=== PATIENT | male | born 1960 | race Caucasian/White ===

== ENCOUNTER 2017-05-22 17:21 | Emergency (ER) | payer OTHER ==
[~2017-05-22] VITALS: Ht 188 cm; Wt 71.4 kg
[2017-05-22 17:25] VITALS: TEMP 36.9; Ht 188 cm; Wt 71.4 kg
[2017-05-22] MEDS ORDERED: SODIUM CHLORIDE 0.9% 1000ML 1,000 ML IV STA (17:32)
[2017-05-22] MEDS ORDERED: KETOROLAC TROMETHAMINE 30 MG/ML VIAL IV STA (17:32)
[2017-05-22] MEDS ORDERED: PROMETHAZINE HCL INJ 6.25 MG in SODIUM CHLORIDE 0.9% 50ML 50 ML IV STA (17:32)
[2017-05-22] MEDS ORDERED: ONDANSETRON INJ 2 MG/ML 2 ML VIAL IV STA (17:32)
--- NOTE | 2017-05-22 17:48 | EMERGENCY ROOM VISIT NOTE ---
History Report prepared by Kathia: Anna Barnett Under the Supervision of: Dr. Quirino Solorzano M.D. First contact with patient: 17:28 Chief Complaint: BACK PAIN Stated Complaint: BACK AND LEFT SIDE PAIN History of Present Illness The patient is a 56 year old male who presents to the Emergency Room with complaints of left abdominal and back pain starting suddenly two days ago. The patient rates his pain as a 9/10. The patient notes that he has also had a fever , cough and has been nauseous. He notes 4 episodes of vomiting. The patient denies diabetes or any history of kidney stones. The patient denies having a bowel movement in the past day. He also denies any possibility of injury. He has not had any urinary complaints and has never experienced this type of pain before. Source of History: patient Onset: two days ago Position: abdomen (left side), back Quality: other (9/10 pain) Associated Symptoms: + fevers, + cough, + nausea, + vomiting, No urinary symptoms Note: Pt. denies having a bowel movement today. Review of Systems See HPI for pertinent positives & negatives. A total of 10 systems reviewed and were otherwise negative. Family History no pertinent family history stated. Social History Smoking Status: Never Smoker Marital Status: single Current/Historical Medications Scheduled Ondasetron Odt (Zofran Odt), 4 MG SL Q6H Tamsulosin Hcl (Flomax), 0.4 MG PO DAILY Scheduled PRN Oxycodone Ir (Roxicodone Ir), 1-2 TAB PO Q4H PRN for Pain Allergies Coded Allergies: No Known Allergies (Unverified , 05/22/17) Physical Exam Vital Signs Date Time Temp Pulse Resp B/P (MAP) Pulse Ox O2 Delivery O2 Flow Rate FiO2 05/22/17 19:24 68 20 150/85 97 05/22/17 18:57 67 20 146/87 98 Room Air 05/22/17 17:25 36.9 103 17 138/101 97 Room Air Physical Exam GENERAL: Patient is in no acute distress. HEENT: No acute trauma, normocephalic atraumatic, mucous membranes moist, no nasal congestion, no scleral icterus. NECK: No stridor, no adenopathy, no meningismus, trachea is midline. LUNGS: Clear to auscultation bilaterally, no wheeze, no rhonchi, breath sounds equal. HEART: Tachycardic with regular rhythm, no murmurs ABDOMEN: Soft, moderately tender along entire left side, bowel sounds positive, no hernias, no peritonitis. EXTREMITIES: No cyanosis or edema, full range of motion of all the joints without pain or difficulty, no signs for acute trauma. NEUROLOGIC: Oriented x 3, no acute motor or sensory deficits, no focal weakness. SKIN: No rash, no jaundice, no diaphoresis. Back: Mild left flank discomfort with percussion. Medical Decision & Procedures ER Provider Diagnostic Interpretation: Radiology results as stated below per my review and radiologist interpretation: SINGLE VIEW CHEST FINDINGS: 2 AP, portable, upright chest radiographs are obtained. No prior studies are available for comparison at the time of dictation. The examination is degraded by portable technique and patient rotation. The cardiomediastinal silhouette is unremarkable. The lungs and pleural spaces are clear. No pneumothorax is seen. The bony thorax is grossly intact. IMPRESSION: No active disease in the chest. Electronically signed by: Quirino Roth M.D. ABD/PELVIS WITHOUT FOR STONE FINDINGS: Air Crew Officer topogram: Unremarkable. Lung bases: Minimal dependent changes likely atelectasis. Normal heart size. Mitral annular calcification suggested. A pericardial or pleural effusion. Liver: Normal morphology. Normal density. Biliary: No gross biliary ductal dilatation allowing for noncontrast technique. Normal gallbladder. Pancreas: Normal. Spleen: Normal. Adrenal glands: Normal. Kidneys and ureters: Mild left hydronephrosis with mild left perinephric infiltration and trace fluid in the left anterior perirenal space. Nonobstructing 3 mm calculus at the left lower pole noted. Dilatation of the left ureter with periureteral fat stranding. An obstructing 6 mm calculus is impacted at the left ureterovesical junction (series 3 image 43). Right kidney and ureter normal without evidence of calculus. Bladder: Incompletely evaluated secondary to underdistention. No evidence of bladder calculus. Pelvic organs: Prostate and seminal vesicles normal. Bowel: Diverticulosis of the descending and sigmoid colon. Normal appendix. No bowel obstruction. Peritoneal cavity: No free fluid or intraperitoneal gas. Vasculature: Atherosclerosis of the normal caliber abdominal aorta. Lymph nodes: No enlarged lymph nodes in the abdomen or pelvis. Abdominal wall: Small fat-containing umbilical hernia. Musculoskeletal: Degenerative changes of the symphysis pubis. IMPRESSION: 1. Obstructing 6 mm calculus impacted at the left ureterovesical junction with resultant mild left hydroureteronephrosis. Additional nonobstructing 3 mm left lower pole calculus. 2. Diverticulosis. Electronically signed by: Chandra Jay M.D. Laboratory Results 05/22/17 18:00 Red Blood Count 4.94, Mean Corpuscular Volume 89.1, Mean Corpuscular Hemoglobin 32.4, Mean Corpuscular Hemoglobin Concent 36.4, Mean Platelet Volume 9.8, Neutrophils (%) (Auto) 79.3, Lymphocytes (%) (Auto) 6.8, Monocytes (%) (Auto) 13.3, Eosinophils (%) (Auto) 0.2, Basophils (%) (Auto) 0.1, Neutrophils # (Auto ) 9.23, Lymphocytes # (Auto) 0.79, Monocytes # (Auto) 1.55, Eosinophils # (Auto ) 0.02, Basophils # (Auto) 0.01 05/22/17 18:00 Test 05/22/17 18:00 05/22/17 18:15 White Blood Count 11.64 K/uL (4.8-10.8) Red Blood Count 4.94 M/uL (4.7-6.1) Hemoglobin 16.0 g/dL (14.0-18.0) Hematocrit 44.0 % (42-52) Mean Corpuscular Volume 89.1 fL (80-100) Mean Corpuscular Hemoglobin 32.4 pg (25-34) Mean Corpuscular Hemoglobin Concent 36.4 g/dl (32-36) Platelet Count 232 K/uL (130-400) Mean Platelet Volume 9.8 fL (7.4-10.4) Neutrophils (%) (Auto) 79.3 % Lymphocytes (%) (Auto) 6.8 % Monocytes (%) (Auto) 13.3 % Eosinophils (%) (Auto) 0.2 % Basophils (%) (Auto) 0.1 % Neutrophils # (Auto) 9.23 K/uL (1.4-6.5) Lymphocytes # (Auto) 0.79 K/uL (1.2-3.4) Monocytes # (Auto) 1.55 K/uL (0.11-0.59) Eosinophils # (Auto) 0.02 K/uL (0-0.5) Basophils # (Auto) 0.01 K/uL (0-0.2) RDW Standard Deviation 40.3 fL (36.4-46.3) RDW Coefficient of Variation 12.5 % (11.5-14.5) Immature Granulocyte % (Auto) 0.3 % Immature Granulocyte # (Auto) 0.04 K/uL (0.00-0.02) Anion Gap 8.0 mmol/L (3-11) Est Creatinine Clear Calc Drug Dose 58.8 ml/min Estimated GFR () 64.2 Estimated GFR (Non- 55.4 BUN/Creatinine Ratio 8.0 (10-20) Calcium Level 9.5 mg/dl (8.5-10.1) Total Bilirubin 0.9 mg/dl (0.2-1) Aspartate Amino Transf (AST/SGOT) 17 U/L (15-37) Alanine Aminotransferase (ALT/SGPT) 23 U/L (12-78) Alkaline Phosphatase 54 U/L (45-117) Total Protein 7.7 gm/dl (6.4-8.2) Albumin 3.6 gm/dl (3.4-5.0) Globulin 4.1 gm/dl (2.5-4.0) Albumin/Globulin Ratio 0.9 (0.9-2) Lipase 129 U/L (73-393) Urine Color YELLOW Urine Appearance CLEAR (CLEAR) Urine pH 6.5 (4.5-7.5) Urine Specific [place] 1.019 (1.000-1.030) Urine Protein 1+ (NEG) Urine Glucose (UA) NEG (NEG) Urine Ketones NEG (NEG) Urine Occult Blood 2+ (NEG) Urine Nitrite NEG (NEG) Urine Bilirubin NEG (NEG) Urine Urobilinogen NEG (NEG) Urine Leukocyte Esterase TRACE (NEG) Urine WBC (Auto) 1-5 /hpf (0-5) Urine RBC (Auto) 10-30 /hpf (0-4) Urine Hyaline Casts (Auto) 1-5 /lpf (0-5) Urine Epithelial Cells (Auto) 5-10 /lpf (0-5) Urine Bacteria (Auto) NEG (NEG) Laboratory results reviewed by me. Medications Administered Medications (Trade) Dose Ordered Sig/Galilea Route Start Time Stop Time Status Last Admin Dose Admin Ondansetron HCl (Zofran Inj) 4 mg NOW STAT IV 05/22/17 17:32 05/22/17 17:34 DC 05/22/17 18:11 4 MG Sodium Chloride 1,000 ml @ 999 mls/hr Q1H1M STAT IV 05/22/17 17:32 05/22/17 18:32 DC 05/22/17 18:10 999 MLS/HR Morphine Sulfate (MoRPHine SULFATE INJ) 4 mg Q30M PRN IV 05/22/17 17:45 05/22/17 19:56 DC 05/22/17 19:22 4 MG Ketorolac Tromethamine (Toradol Inj) 30 mg NOW STAT IV 05/22/17 17:32 05/22/17 17:34 DC 05/22/17 18:11 30 MG Promethazine HCl 6.25 mg/Sodium Chloride 50.25 ml @ 204 mls/hr NOW STAT IV 05/22/17 17:32 05/22/17 17:46 DC 05/22/17 18:12 204 MLS/HR Tamsulosin HCl (Flomax Cap) 0.4 mg NOW ONCE PO 05/22/17 19:15 05/22/17 19:16 DC 05/22/17 19:22 0.4 MG ECG Indication: abdominal pain (and back pain) Rate (beats per minute): 73 Rhythm: normal sinus Findings: no acute ischemic change, no ectopy ED Course 1728: The patient was evaluated in room B5. A complete history and physical exam was performed. 1732: Promethazine HCl 6.25 mg/Sodium Chloride 50.25 ml @204 mls/hr, Toradol IInj 30 mg IV, Sodium Chloride 1000 ml @ 999 mls/hr IV, Zofran Inj 4 mg IV. 1745: Morphine Sulfate 4 mg IV 1910: I updated the patient with his radiology results. 1914: Flomax Cap 0.4 mg PO. 0: Reevaluated the patient. Discussed results and discharge instructions: He verbalized understanding and agreement. The patient is ready for discharge. Medical Decision Differential diagnosis includes but is not limited to renal colliculi, UTI, splenic injury, bowel obstruction, hernia, diverticulitis, pancreatitis, musculoskeletal pain, pneumonia. There is a mild leukocytosis which could be consistent with infection or just his pain. No concerning anemia. No significant electrolyte abnormality or kidney failure. There is no hepatitis or pancreatitis. Urinalysis shows some hematuria, no infection. EKG shows a normal sinus rhythm, no acute ischemia. Chest film does not show pneumonia or free air, there was no mediastinal widening. Abdominal and pelvis CT shows a left-sided ureteral stone with hydronephrosis. The patient received IV saline, IV Toradol and IV morphine, he was given IV saline and then eventually oral Flomax. The patient is feeling improved. I think he can be discharged with outpatient follow-up. He was discharged with Motrin, oxycodone, Zofran. He was given a prescription for Flomax. He will strain all his urine. If he has uncontrolled pain, fever or vomiting, he will need to return to the ER. He will follow with his doctor's office for a potential urology referral. [place] Drug Monitoring Program Search Results: no issues identified Medication Reconcilliation Current Medication List: was personally reviewed by me Blood Pressure Screening Patient's blood pressure: Elevated blood pressure Blood pressure disposition: Elevated BP felt to be situational Impression Primary Impression: Renal colic Additional Impression: Hematuria Scribe Attestation The scribe's documentation has been prepared under my direction and personally reviewed by me in its entirety. I confirm that the note above accurately reflects all work, treatment, procedures, and medical decision making performed by me. Departure Information Dispostion Home / Self-Care Prescriptions Oxycodone Ir (Roxicodone Ir) 5 Mg Tab 1-2 TAB PO Q4H Y for Pain, #12 TAB Prov: Quirino Solorzano M.D. 05/22/17 Tamsulosin Hcl (FLOMAX) 0.4 Mg Cap 0.4 MG PO DAILY, #10 CAP Prov: Quirino Solorzano M.D. 05/22/17 Ondasetron Odt (ZOFRAN ODT) 4 Mg Tab 4 MG SL Q6H for Nausea, #12 TAB Prov: Quirino Solorzano M.D. 05/22/17 Referrals Jesús Holm M.D. (PCP) Forms HOME CARE DOCUMENTATION FORM, IMPORTANT VISIT INFORMATION Patient Instructions My [facility] Additional Instructions flomax daily to help the stone pass strain all urine for the stone talk with your doctor about a urology referral motrin 600 m 3x per day for pain as needed oxy ir 1-2 tab every 4 hours for severe pain zofran 1 tab every 6 hours for nausea return for fever, vomiting or uncontrolled pain Problem Qualifiers
--- NOTE | 2017-05-22 17:54 | DIAGNOSTIC IMAGING REPORT ---
SINGLE VIEW CHEST CLINICAL HISTORY: Generalized abdominal pain. FINDINGS: 2 AP, portable, upright chest radiographs are obtained. No prior studies are available for comparison at the time of dictation. The examination is degraded by portable technique and patient rotation. The cardiomediastinal silhouette is unremarkable. The lungs and pleural spaces are clear. No pneumothorax is seen. The bony thorax is grossly intact. IMPRESSION: No active disease in the chest. Electronically signed by: Quirino Roth M.D. 05/22/2017 5:53 PM Dictated Date/Time: 05/22/2017 5:52 PM
[2017-05-22 18:11] LABS: BASO % 0.1 %; BASO ABS # 0.01 K/uL (0-0.2); COMPLETE YES; EOS % 0.2 %; IG% 0.3 %; LYMPH % 6.8 %; LYMPH ABS # 0.79 K/uL (1.2-3.4); MEAN CELL VOLUME 89.1 fL (80-100); MEAN CORPUSCULAR HEMOGLOBIN 32.4 pg (25-34); MEAN CORPUSCULAR HGB CONC 36.4 g/dl (32-36); MEAN PLATELET VOLUME 9.8 fL (7.4-10.4); MONO % 13.3 %; NEUT % 79.3 %; PLATELET COUNT 232 K/uL (130-400); RED BLOOD COUNT 4.94 M/uL (4.7-6.1); WHITE BLOOD COUNT 11.64 K/uL (4.8-10.8)
[2017-05-22] MEDS: MoRPHine SULFATE 4 MG/ML 1 ML CARP\\VIAL IV PRN ×2 (18:11→19:22)
[2017-05-22 18:32] LABS: CALCIUM 9.5 mg/dl (8.5-10.1); CREATININE 1.4 mg/dl (0.60-1.40); POTASSIUM 3.3 mmol/L (3.5-5.1)
[2017-05-22 18:34] LABS: ALB/GLOB RATIO 0.9 (0.9-2)
[2017-05-22 18:40] LABS: URINE APPEARANCE CLEAR (CLEAR); URINE BILIRUBIN NEG (NEG); URINE COLOR YELLOW; URINE NITRITE NEG (NEG); URINE PH 6.5 (4.5-7.5); URINE SPECIFIC GRAVITY 1.019 (1.000-1.030); UROBILINOGEN NEG (NEG); ZZUR CULT IF INDIC CLEAN CATCH NO
[2017-05-22 18:42] LABS: MANUAL MICROSCOPIC REQUIRED? NO; REVIEW REQ? NO
--- NOTE | 2017-05-22 18:42 | DIAGNOSTIC IMAGING REPORT ---
ABD/PELVIS WITHOUT FOR STONE CLINICAL HISTORY: 56 years-old Male presenting with EVALUATE FLANK PAIN/HEMATURIA. TECHNIQUE: Multidetector CT of the abdomen and pelvis was performed without the use of intravenous contrast. IV contrast: None. A dose lowering technique was used consistent with the principles of ALARA (as low as reasonably achievable). COMPARISON: None. CT DOSE (mGy.cm): The estimated cumulative dose is 802.15 mGy.cm. FINDINGS: Bark Skinner topogram: Unremarkable. Lung bases: Minimal dependent changes likely atelectasis. Normal heart size. Mitral annular calcification suggested. A pericardial or pleural effusion. Liver: Normal morphology. Normal density. Biliary: No gross biliary ductal dilatation allowing for noncontrast technique. Normal gallbladder. Pancreas: Normal. Spleen: Normal. Adrenal glands: Normal. Kidneys and ureters: Mild left hydronephrosis with mild left perinephric infiltration and trace fluid in the left anterior perirenal space. Nonobstructing 3 mm calculus at the left lower pole noted. Dilatation of the left ureter with periureteral fat stranding. An obstructing 6 mm calculus is impacted at the left ureterovesical junction (series 3 image 43). Right kidney and ureter normal without evidence of calculus. Bladder: Incompletely evaluated secondary to underdistention. No evidence of bladder calculus. Pelvic organs: Prostate and seminal vesicles normal. Bowel: Diverticulosis of the descending and sigmoid colon. Normal appendix. No bowel obstruction. Peritoneal cavity: No free fluid or intraperitoneal gas. Vasculature: Atherosclerosis of the normal caliber abdominal aorta. Lymph nodes: No enlarged lymph nodes in the abdomen or pelvis. Abdominal wall: Small fat-containing umbilical hernia. Musculoskeletal: Degenerative changes of the symphysis pubis. IMPRESSION: 1. Obstructing 6 mm calculus impacted at the left ureterovesical junction with resultant mild left hydroureteronephrosis. Additional nonobstructing 3 mm left lower pole calculus. 2. Diverticulosis. Electronically signed by: Chandra Jay M.D. 05/22/2017 6:40 PM Dictated Date/Time: 05/22/2017 6:35 PM
[2017-05-22] MEDS ORDERED: TAMSULOSIN HCL 0.4 MG CAP PO ONE (19:15)
[2017-05-22] MEDS ORDERED: ONDA4TAB10 SL (19:21)
[2017-05-22] MEDS ORDERED: TAMS0.4C38 PO (19:21)
[2017-05-22] MEDS ORDERED: OXYC1TAB3 PO (19:21)
[2017-05-22 19:24] VITALS: BP 150/85; PULSE 68; O2SAT 97
== END 2017-05-22 19:33 | disposition home or self-care (01) ==
LOC: C.EDB 17:23
DX: N23 Unspecified renal colic (principal); R31.9 Hematuria, unspecified; M54.9 Dorsalgia, unspecified; R50.9 Fever, unspecified; R05 Cough; R11.2 Nausea with vomiting, unspecified; Z79.899 Other long term (current) drug therapy

== ENCOUNTER 2017-07-08 20:28 | Emergency (ER) | payer OTHER ==
[~2017-07-08] VITALS: Ht 167.6 cm; Wt 69.9 kg
[~2017-07-08 20:28] MED LIST: ONDA4TAB10 SL; OXYC1TAB3 PO
[2017-07-08 20:43] VITALS: TEMP 37.1; Ht 167.6 cm; Wt 69.9 kg
[2017-07-08] MEDS ORDERED: XYLOCAINE 1%/SOD BICARB 20 ML VIAL INFIL ONE (21:45)
[2017-07-08] MEDS ORDERED: CEPHALEXIN MONOHYDRATE 250 MG CAP PO ONE (22:00)
[2017-07-08] MEDS ORDERED: CEPH500C PO (22:40)
[2017-07-08 22:43] VITALS: BP 134/84; PULSE 86; O2SAT 96
--- NOTE | 2017-07-10 00:45 | EMERGENCY ROOM VISIT NOTE ---
History First contact with patient: 21:13 Chief Complaint: LACERATION/CUT (SUT/DERMABOND) Stated Complaint: FELL AND SLICED RT EAR (INTOXICATED) Nursing Triage Summary: pt arrives with sister. pt mentally challenged and intoxicated. fell and has laceration to R ear. History of Present Illness The patient is a 56 year old male who presents to the Emergency Room with complaints of a laceration to his right ear. The patient is mentally challenged. He is here with his sister. The patient's sister says that he had been drinking alcohol today. She is unsure of how much, but she says it was a significant amount. She thinks that he may have cut his ear on a piece of wood trim. His tetanus shot is up-to-date. The patient currently has no complaints. He denies any neck pain, headache or changes in vision. He denies any significant pain Review of Systems 6 system review negative. Please see pertinent positives in the history of present illness section. Past Medical/Surgical History Mentally challenged Social History Smoking Status: Never Smoker Marital Status: single Current/Historical Medications Scheduled Cephalexin Monohydrate (Keflex), 500 MG PO TID Physical Exam Vital Signs Date Time Temp Pulse Resp B/P (MAP) Pulse Ox O2 Delivery O2 Flow Rate FiO2 07/08/17 22:43 86 18 134/84 96 07/08/17 20:43 37.1 113 18 121/75 93 Room Air Physical Exam VITALS: Vitals are noted on the nurse's note and reviewed by myself. Vital signs stable. GENERAL: 56-year-old male, intoxicated,, HEAD: Normocephalic atraumatic. EARS: There is an approximately 3.5 cm laceration through the right ear. The laceration is through and through into the pinna. There is cartilage visible at the bottom of the wound. There is no active bleeding. There is a slight amount of debris in the wound. External auditory canal is clear. EYES: Pupils equal round and reactive to light and accommodation. MUSCULOSKELETAL: Strength 5/5 throughout. NEURO: Patient was alert and answering some questions appropriately. Motor function intact. Medical Decision & Procedures Medications Administered Medications (Trade) Dose Ordered Sig/Galilea Route Start Time Stop Time Status Last Admin Dose Admin Lidocaine HCl (Buffered Lidocaine 1% Inj) 20 ml NOW ONCE INFIL 07/08/17 21:45 07/08/17 21:46 DC 07/08/17 21:57 20 ML Cephalexin Monohydrate (Keflex Cap) 500 mg NOW ONCE PO 07/08/17 22:00 07/08/17 22:01 DC 07/08/17 21:57 500 MG Procedure Verbal consent was obtained to perform the procedure. Using sterile technique the wound was cleaned with Betadine. The area was sterilely draped. 3 ml of 1 % buffered lidocaine was used to anesthetize the laceration on the ear. Once the patient was anesthetized, the wound was copiously irrigated under pressure with sterile saline. The wound was explored The laceration was repaired using 14 simple interrupted 6-0 nylon sutures with the wound edges being well approximated. The patient tolerated the procedure well. Hemostasis was achieved. The area was cleaned with sterile saline and dressed with bacitracin ointment and bandage. ED Course The patient was seen and examined The laceration was repaired. Please see my procedure note. The patient was given 1 dose of Keflex Discharge instructions were thoroughly reviewed with the patient's sister. She voiced understanding, and he was discharged in good condition Medical Decision Differential diagnosis: Laceration, wound infection This patient is a 56-year-old male that presented with a laceration to his right ear. It is through and through. There is cartilage present. I was worried about infection. The patient has a history of mental delay. I cannot get any information from him. The wound appeared somewhat old. I'm concerned that it is already starting to heal. Given the location of the wound, I decided to still suture it as opposed to let it heal by secondary intention. after thoroughly cleaning it to the best of my ability it was sutured closed with the wound edges being well approximated. The patient tolerated the procedure well. He was put on prophylactic antibiotics. He was instructed to have his primary care physician check this in 2 days. He was also given the name of the plastic surgeon to notify if the wound is not healing well. He was instructed on signs of infection, for which she will return to the ER This chart was completed in part utilizing [employer] Voice Recognition software. Attempts were made to minimize the grammatical errors, random word insertions, pronoun errors and incomplete sentences. Any formal questions or concerns about the content, text or information contained within the body of this dictation should be directly addressed to the provider for clarification. Blood Pressure Screening Patient's blood pressure: Normal blood pressure Impression Primary Impression: Laceration Departure Information Dispostion Home / Self-Care Condition GOOD Prescriptions Cephalexin Monohydrate (Keflex) 500 Mg Cap 500 MG PO TID for 7 Days, #21 CAP Prov: Domonique Mariee PA-C 07/08/17 Referrals Jesús Holm M.D. (PCP) Flavia Gordon MD Forms HOME CARE DOCUMENTATION FORM, IMPORTANT VISIT INFORMATION Patient Instructions My [facility], ED Laceration All Additional Instructions Keep wound clean. It is okay to gently wash the area with soapy water. Do not submerse it in water for long periods of time such as swimming, going in hot tubs or taking baths until the sutures come out. Do not allow any crusting or dried blood to accumulate on sutures. If this occurs, use a 1:1 solution of hydrogen peroxide/water on a Q-tip to clean the wound. Use an antibiotic ointment for 3 days, then let wound dry. Suture removal in 7 days. Return sooner for any signs of infection (increasing redness, swelling, drainage). Please finish the entire course of antibiotics Please have the wound rechecked in 3 days. If the wound appears to not be healing well, you may need to be referred to a plastic surgeon. A number has been provided for Dr. Eid Ibuprofen 600 mg and Tylenol 1000 mg every 6 hrs for pain.
== END 2017-07-08 22:43 | disposition home or self-care (01) ==
LOC: C.EDB 20:29 → C.EDD 22:43
DX: S01.311A Laceration without foreign body of right ear, initial encounter (principal); W19.XXXA Unspecified fall, initial encounter; Y92.9 Unspecified place or not applicable